=== PATIENT | female | born 1950 | race Caucasian/White ===

== ENCOUNTER → 2018-10-22 12:30 | Outpatient (CLI) | payer MEDICARE, SELFPAY ==
--- NOTE | 2018-10-22 12:32 | DI.CT.S_ITS ---
PROCEDURE: CT KIDNEY URETER BLADDER (KUB) INDICATIONS: Acute LLQ Abdominal Pain TECHNIQUE: Noncontrast 5 mm thick sections acquired from the diaphragms to the symphysis. 5 mm thick coronal and sagittal reformats were then performed. For radiation dose reduction, the following was used: automated exposure control, adjustment of mA and/or kV according to patient size. COMPARISON: None. FINDINGS: Image quality: The Lung bases: Lung bases are clear. Heart size is normal. Urinary system: Both kidneys are normal in size. There is moderate left-sided hydronephrosis and hydroureter extending to the level of left UVJ. No obstructing stone is seen. Mild left perinephric fat stranding is seen. 2.7 x 2.1 cm cyst containing linear calcification is seen in midpole of left kidney. No right sided renal stone hydronephrosis. No right perinephric fat stranding. Normal-appearing right ureter is seen. Bladder wall is mildly thickened, no discrete bladder wall mass. No calcified bladder stones. Other solid organs: Liver is normal in size. Gallbladder is within normal limits. Pancreas is normal in contours. Spleen is normal in size. No adrenal nodules. Peritoneum and bowel: Unenhanced bowel loops demonstrate normal wall thickness and caliber. No free fluid or air. Small hiatal hernia is seen. Mild sigmoid diverticulosis is seen, no CT evidence of acute diverticulitis. Normal appendix is noted. Nodes and vessels: No retroperitoneal or mesenteric adenopathy by size criteria. Aorta and inferior vena cava are normal in caliber. Abdominal wall: No ventral hernias. Pelvis: No free pelvic fluid. No inguinal hernias or adenopathy. Bones: No suspicious bony lesions. No vertebral body compression fractures. IMPRESSION: 1. Mild to moderate left-sided hydronephrosis and hydroureter extending to the level of left UVJ. No calcified renal stone or ureteral stone is seen. Finding may represent a passed left renal stone. Mild to moderate left perinephric fat stranding. Suggestion of a 2.1 cm cyst with partially calcified septum in midpole of left kidney. 2. No right-sided renal stone hydronephrosis. Mild diffuse bladder wall thickening, no discrete bladder wall mass. No calcified bladder stone. 3. No bowel obstruction. Normal appendix. Sigmoid diverticulosis with no evidence of acute diverticulitis. No free fluid or free air. Dictated by: Ezequiel Dunbar M.D. on 10/22/2018 at 13:50 Approved by: Ezequiel Dunbar M.D. on 10/22/2018 at 13:55
== END ==
PROVIDERS: Visit Provider Physician Assistant
DX: R10.32 Left lower quadrant pain (principal); N13.30 Unspecified hydronephrosis; N13.4 Hydroureter; K44.9 Diaphragmatic hernia without obstruction or gangrene; K57.30 Diverticulosis of large intestine without perforation or abscess without bleeding; Z87.442 Personal history of urinary calculi
CPT/HCPCS: 74176

== ENCOUNTER → 2018-10-24 12:07 | Outpatient (CLI) | payer MEDICARE, SELFPAY | PROVIDERS: Visit Provider Physician Assistant | DX: R10.9 Unspecified abdominal pain (principal) | CPT/HCPCS: 87086 ==